=== PATIENT | male | born 1960 | race Caucasian/White ===

== ENCOUNTER 2018-11-06 09:42 | Emergency (ER) | payer OTHER ==
[~2018-11-06] VITALS: Ht 175.3 cm; Wt 95.3 kg
[2018-11-06 09:50] VITALS: BP 93/62
--- NOTE | 2018-11-06 10:00 | NUR ---
PT AMB TO ER BED 11
--- NOTE | 2018-11-06 10:05 | NUR ---
PT BIB SELF C/O PENILE PAIN 03/26 X 1 DAY S/P JACQUES INSERTION ON 11/03/18/. PER PATIENT "GREEN DISCHARGE" WAS NOTED YESTERDAY. NO S/S OF INFECTION NOTED. 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 PT PLACED IN BED PENDING ER MD EVALUATION.
--- NOTE | 2018-11-06 10:40 | NUR ---
REMOVED JACQUES CATH PER MD ORDER. PT TOLERATED PROCEDURE WELL.
[2018-11-06 10:56] LABS: APPEARANCE,URINE SL CLOUDY (CLEAR); BILIRUBIN,URINE NEGATIVE (NEGATIVE); BLOOD, URINE 3+ (NEGATIVE); COLOR,URINE YELLOW (YELLOW); LEUKOCYTE ESTERASE ,URINE 1+ (NEGATIVE); NITRITE, URINE NEGATIVE (NEGATIVE); PH,URINE 5.5 (5.0-9.0); UGLUCOSE NEGATIVE (NEGATIVE)
[2018-11-06 11:11] LABS: RBC,URINE TOO NUMEROUS TO COUN /HPF (0-5)
[2018-11-06 11:34] VITALS: BP 93/62
--- NOTE | 2018-11-06 11:34 | NUR ---
Patient discharged with v/s stable BY DR APODACA. Written and verbal after care instructions given and explained. Patient alert, oriented and verbalized understanding of instructions. Ambulatory with steady gait. All questions addressed prior to discharge. ID band removed. Patient advised to follow up with PMD. Rx of CIPRO AND PYRIDIUM given. Patient educated on indication of medication including possible reaction and side effects. Opportunity to ask questions provided and answered.
== END 2018-11-06 11:34 | disposition home or self-care (01) ==
LOC: MED 09:42
DX: N39.0 Urinary tract infection, site not specified (principal); I10 Essential (primary) hypertension; Z88.8 Allergy status to other drugs, medicaments and biological substances; Z87.442 Personal history of urinary calculi; Z98.890 Other specified postprocedural states
CPT/HCPCS: 81001; 87086; 99283

== ENCOUNTER 2019-01-02 12:47 | Emergency (ER) | payer OTHER ==
[~2019-01-02] VITALS: Ht 175.3 cm; Wt 97.5 kg
[2019-01-02 13:10] VITALS: BP 124/92
--- NOTE | 2019-01-02 13:10 | NUR ---
PATIENT AMBULATED TO BED 3 AT THIS TIME.
--- NOTE | 2019-01-02 13:29 | NUR ---
C/O KIDNEY STONES X1 WEEK. PT REPORTS BILATERAL FLANK PAIN AT 9/10. NO HEMATURIA, URINATING FREQUENTY. +NAUSEA. -FEVER. PT HAD EPIDURAL LAST WEEK FOR CHRONIC BACK PAIN. MEDHX:KIDNEY STONES, HTN, BACK SURGERY
[2019-01-02] MEDS ORDERED: NACL 0.9% 1,000 ML IV ONE (13:31)
[2019-01-02] MEDS ORDERED: ONDANSETRON 4 MG/2 ML VIAL IVP ONE (13:35)
[2019-01-02] MEDS ORDERED: KETOROLAC 30 MG/ML VIAL IVP ONE (13:35)
[2019-01-02] MEDS ORDERED: MORPHINE SULFATE 4 MG/ML SYR IVP ONE ×2 (13:35→14:45)
--- NOTE | 2019-01-02 13:35 | NUR ---
PT OFFERED URINAL. PT UNABLE TO GIVE URINE SPECIMEN AT THIS TIME. WILL TRY AGAIN LATER
--- NOTE | 2019-01-02 13:50 | NUR ---
PT TAKEN TO CT VIA BED BY TAB MACHINE OPERATOR
--- NOTE | 2019-01-02 14:01 | NUR ---
Castillo slade in ED - 01/02/19 at 1408 by MED PT OFFERED URINAL. PT UNABLE TO GIVE URINE SPECIMEN AT THIS TIME. WILL TRY AGAIN LATER
--- NOTE | 2019-01-02 14:09 | NUR ---
PT BACK TO ROOM FROM CT VIA BED BY CRUSHER FEEDER
[2019-01-02 14:21] LABS: BASOPHILS # (AUTO) 0.2 K/uL (0.00-0.22); BASOPHILS % (AUTO) 1.2 % (0.0-2.0); EOSINOPHILS # (AUTO) 0.3 K/uL (0-0.4); EOSINOPHILS % (AUTO) 1.9 % (0.0-4.0); HEMATOCRIT 40.8 % (36-52); HEMOGLOBIN 14.2 g/dL (12.0-18.0); LYMPHOCYTES # (AUTO) 4.5 K/uL (2.0-11.5); LYMPHOCYTES % (AUTO) 33.8 % (20.5-51.1); MEAN CORPUSCULAR HEMOGLOBIN 32 pg (27-31); MEAN CORPUSCULAR HGB CONC 35 g/dL (33-37); MEAN CORPUSCULAR VOLUME 91.8 fL (80-94); MONOCYTES # (AUTO) 1.7 K/uL (0.8-1.0); MONOCYTES % (AUTO) 12.7 % (1.7-9.3); NEUTROPHILS # (AUTO) 6.7 K/uL (1.8-7.7); NEUTROPHILS % (AUTO) 50.4 % (42.2-75.2); PLATELET COUNT (AUTO) 426 K/uL (140-450); RED BLOOD CELL COUNT(AUTO) 4.44 MIL/uL (4.20-6.10); RED CELL DISTRIBUTION WIDTH 13.1 % (11.6-13.7); WHITE BLOOD COUNT (AUTO) 13.4 K/uL (4.8-10.8)
[2019-01-02 14:36] LABS: CARBON DIOXIDE 25.4 mmol/L (21-32); CREATININE 1.1 mg/dL (0.7-1.3); POTASSIUM 4.4 mmol/L (3.5-5.1)
[2019-01-02 14:42] LABS: ALBUMIN 3.7 g/dL (3.4-5.0); TOTAL BILIRUBIN 0.3 mg/dL (0.0-1.0)
--- NOTE | 2019-01-02 15:00 | NUR ---
URINE SPECIMEN OBTAINED. CALLED LAB FOR SCUDDING INSPECTOR.
[2019-01-02 15:21] LABS: APPEARANCE,URINE CLEAR (CLEAR); BILIRUBIN,URINE NEGATIVE (NEGATIVE); BLOOD, URINE NEGATIVE (NEGATIVE); COLOR,URINE YELLOW (YELLOW); LEUKOCYTE ESTERASE ,URINE NEGATIVE (NEGATIVE); NITRITE, URINE NEGATIVE (NEGATIVE); UGLUCOSE NEGATIVE (NEGATIVE)
--- NOTE | 2019-01-02 15:53 | NUR ---
PT AAO X4. FULL CLEAR SPEECH. PT STATES LAYING ON THE SIDE HELPS WITH THE PAIN. PT STATES PAIN 5/10. NO SIGNS AND SYMPTOMS OF DISTRESS NOTED. WILL CONTINUE TO MONITOR.
[2019-01-02 16:55] VITALS: BP 125/75
--- NOTE | 2019-01-02 16:55 | NUR ---
Patient discharged with v/s stable. Written and verbal after care instructions given and explained. Patient alert, oriented and verbalized understanding of instructions. Ambulatory with steady gait. All questions addressed prior to discharge. ID band removed. Patient advised to follow up with PMD. Rx of NORCO AND NAPROSYN given. Patient educated on indication of medication including possible reaction and side effects. Opportunity to ask questions provided and answered. PT INSTRUCTED TO WAIT IN LOBBY FOR RIDE.
== END 2019-01-02 16:55 | disposition home or self-care (01) ==
LOC: MED 12:47
DX: R10.9 Unspecified abdominal pain (principal); M54.9 Dorsalgia, unspecified; I10 Essential (primary) hypertension; Z90.49 Acquired absence of other specified parts of digestive tract; Z88.8 Allergy status to other drugs, medicaments and biological substances; Z87.442 Personal history of urinary calculi
CPT/HCPCS: 36415; 74176; 80053; 81003; 83690; 85025; 96374; 96375; 96376; 99284; J1885; J2270; J2405; C1758

== ENCOUNTER 2020-04-03 18:15 | Emergency (ER) | payer OTHER, SELFPAY ==
[~2020-04-03] VITALS: Ht 175.3 cm; Wt 95.3 kg
[2020-04-03 18:19] VITALS: BP 122/69
--- NOTE | 2020-04-03 18:28 | NUR ---
Pt ambulated to bed 03
--- NOTE | 2020-04-03 18:40 | NUR ---
DR VICENTE AT BEDSIDE EVALUATING PT.
--- NOTE | 2020-04-03 19:02 | NUR ---
COVID TEST DONE ANAND RECEIVED SPECIMEN.
--- NOTE | 2020-04-03 19:18 | NUR ---
Pt c/o SOB, cough, sore throat, and fatigue since this morning. Pt aox4 , afibrile , ambulatory with steady gait . sce , flat soft abdomen. medhx: appendectomy, broken back
--- NOTE | 2020-04-03 19:20 | NUR ---
REPORT RECEIVED FROM ILIANA BELLAMY FOR CONTINUITY OF CARE
--- NOTE | 2020-04-03 19:20 | NUR ---
GAVE REPORT TO ILIANA KELLY ,PT IN BED WITH STABLE V/S.
[2020-04-03 19:25] LABS: BASOPHILS # (AUTO) 0.2 K/uL (0.00-0.22); EOSINOPHILS # (AUTO) 0.6 K/uL (0-0.4); EOSINOPHILS % (AUTO) 3.8 % (0.0-4.0); HEMATOCRIT 39.3 % (36-52); HEMOGLOBIN 13.1 g/dL (12.0-18.0); LYMPHOCYTES # (AUTO) 4.7 K/uL (2.0-11.5); LYMPHOCYTES % (AUTO) 29.9 % (20.5-51.1); MEAN CORPUSCULAR HEMOGLOBIN 31 pg (27-31); MEAN CORPUSCULAR HGB CONC 34 g/dL (33-37); MEAN CORPUSCULAR VOLUME 92.4 fL (80-94); MONOCYTES # (AUTO) 2.1 K/uL (0.8-1.0); MONOCYTES % (AUTO) 13.5 % (1.7-9.3); NEUTROPHILS # (AUTO) 8.1 K/uL (1.8-7.7); NEUTROPHILS % (AUTO) 51.8 % (42.2-75.2); PLATELET COUNT (AUTO) 429 K/uL (140-450); RED BLOOD CELL COUNT(AUTO) 4.25 MIL/uL (4.20-6.10); RED CELL DISTRIBUTION WIDTH 13.1 % (11.6-13.7); WHITE BLOOD COUNT (AUTO) 15.7 K/uL (4.8-10.8)
[2020-04-03 19:37] LABS: C-REACTIVE PROTEIN QUANT 1.2 mg/dL (0.0-0.9)
[2020-04-03 19:45] LABS: ALBUMIN 3.6 g/dL (3.4-5.0); ANION GAP 12.3 (8-16); CARBON DIOXIDE 25.9 mmol/L (21-32); CREATININE 1.6 mg/dL (0.6-1.3); POTASSIUM 5.2 mmol/L (3.5-5.1); TOTAL BILIRUBIN 0.3 mg/dL (0.0-1.0)
--- NOTE | 2020-04-03 19:46 | NUR ---
PT RESTING IN BED, LOCKED AND IN LOWEST POSITION, HOB ELEVATED, SIDE RAIL X2 FOR PT SAFETY. VISIBLE RISE AND FALL OF CHEST,RR EVEN AND UNLABORED, SAO2 98%, VSS. PT PROVIDED COOL WASH CLOTHS AND PILLOW FOR COMFORT.
--- NOTE | 2020-04-03 19:50 | NUR ---
PT PROVIDED URINAL TO ENCOURAGE URINE SAMPLE COLLECTION
--- NOTE | 2020-04-03 19:56 | NUR ---
URINE SAMPLE COLLECTED AND WALKED TO LAB.
[2020-04-03] MEDS ORDERED: NACL 0.9% 1,000 ML IV ONE (20:00)
--- NOTE | 2020-04-03 20:10 | NUR ---
ADMINISTERED AT THIS TIME NS BOLUS [address] HOLLIDAY MEDICATION ORDER.
[2020-04-03 20:13] LABS: APPEARANCE,URINE CLEAR (CLEAR); BILIRUBIN,URINE NEGATIVE (NEGATIVE); BLOOD, URINE NEGATIVE (NEGATIVE); COLOR,URINE YELLOW (YELLOW); LEUKOCYTE ESTERASE ,URINE NEGATIVE (NEGATIVE); NITRITE, URINE NEGATIVE (NEGATIVE); UGLUCOSE NEGATIVE (NEGATIVE)
--- NOTE | 2020-04-03 20:20 | NUR ---
PT C/O OF UNABLE TO CATCH BREATH , PER DR. MG MEJIA TO ADMINISTER OXYGEN , NC 2L.
--- NOTE | 2020-04-03 21:19 | NUR ---
PT RETURN FROM CT
--- NOTE | 2020-04-03 21:24 | NUR ---
PT RECONNECTED TO NS BOLUS, PT RESTING IN BED, LOCKED AND IN LOWEST POSITION, HOB ELEVATED, SIDE RAIL X2 FOR PT SAFET. VSS, RR EVEN AND UNLABORED.
[2020-04-03] MEDS ORDERED: ALBUTEROL HFA MDI 90 MCG/ACTUATION 8 GM INH ONE (21:35)
[2020-04-03] MEDS ORDERED: predniSONE 20 MG TAB PO ONE (21:35)
[2020-04-03] MEDS ORDERED: LEVOFLOXACIN 500 MG/D5W PREMIX 100 ML IV ONE (21:40)
--- NOTE | 2020-04-03 21:51 | NUR ---
EKG PERFORMED AT BEDSIDE. SINUS RHTYHM @ 88
--- NOTE | 2020-04-03 22:06 | NUR ---
Castillo slade in [facility] - 04/03/20 at 2207 by LEYDA X-RAY AT BEDSIDE
--- NOTE | 2020-04-03 22:23 | NUR ---
RT AT BEDSIDE FOR BREATHING TX.
--- NOTE | 2020-04-03 22:48 | NUR ---
PER PT HE DOES NOT WISH TO BE ADMITTED TO THE HOSPITAL AT THIS TIME. HE IS THE SOLE PROVIDER FOR HIS BROTHER WHO NEEDS [address] ZAPATA MADE AWARE.
--- NOTE | 2020-04-03 23:05 | NUR ---
DR. VICENTE AT BEDSIDE TO SPEAK W/ PT RE LEAVING AGAINST MEDICAL ADVICE
--- NOTE | 2020-04-03 23:42 | NUR ---
IV removed, catheter intact and site benign. Applied folded 4x4 gauze and tape to stop bleeding.
[2020-04-03 23:46] VITALS: BP 136/76
--- NOTE | 2020-04-03 23:46 | NUR ---
Patient does not wish to proceed with medical care recommended by DR. CHIANG AND DR. ZAPATA. Patient given information related to possible complications, up to and including , which could occur as a result of leaving hospital at this time. Patient verbalizes understanding of risks involved leaving against medical advice. Patient has signed AMA form. Per ERMD pt provided w/ Rx:levaquin , prednisone and albuterol.
--- NOTE | 2020-04-05 10:58 | NUR ---
Covid results received from lab. Results = NOT DETECTED. Hard copy requested from lab and placed in infection controls mailbox.
== END 2020-04-03 23:46 | disposition left against medical advice (07) ==
LOC: MED 18:15
DX: J44.1 Chronic obstructive pulmonary disease with (acute) exacerbation (principal); R07.9 Chest pain, unspecified; Z20.828 Contact with and (suspected) exposure to other viral communicable diseases
CPT/HCPCS: 36415; 71045; 71275; 80053; 81003; 83880; 84484; 85025; 86140; 93005; 96361; 96365; 99285; J1956; J3535; J7030; J7512; Q9967; U0003

== ENCOUNTER 2024-04-02 13:30 | Emergency (ER) | payer OTHER ==
[~2024-04-02] VITALS: Ht 175.3 cm; Wt 86.2 kg
[2024-04-02 13:55] VITALS: BP 123/69; PULSE 94; RESP 19; TEMP 98; O2SAT 96
[2024-04-02 13:59] VITALS: O2SAT 96
[2024-04-02] MEDS ORDERED: LIDOCAINE MPF 1% 10 MG/ML VIAL INJ ONE (14:05)
[2024-04-02] MEDS: IBUPROFEN 600 MG TAB PO ONE (14:21)
== END 2024-04-02 14:35 | disposition home or self-care (01) ==
LOC: MED 13:30
DX: S61.210A Laceration without foreign body of right index finger without damage to nail, initial encounter (principal); I10 Essential (primary) hypertension; Z88.0 Allergy status to penicillin; Z88.1 Allergy status to other antibiotic agents; X58.XXXA Exposure to other specified factors, initial encounter; Y93.89 Activity, other specified; Y92.89 Other specified places as the place of occurrence of the external cause; Y99.8 Other external cause status
CPT/HCPCS: 12001; 90471; 90715; 99283